=== PATIENT | male | born 1940 | race Caucasian/White ===

== ENCOUNTER 2016-12-24 11:18 | Emergency (ER) | payer MEDICARE, BC ==
--- NOTE | 2016-12-24 11:26 | EDM.PDOC ---
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 Denies LOC or any other injury. Pt states his DPOA drove him to town to go to the civil attorney's office and that's when he bumped his head. Pt's DPOA states pt was drowsy this morning before he hit his head. She wasn't sure if he hadn't slept well, it he was getting sick, or if maybe he had accidentally taken his night medications in the morning rather than at night. Pt is unable to provide any further history. Symptom Onset Date: 12/24/16 Location: Reports: parietal (Rt) Severity: mild Place of Occurrence: other Improves with: none Worsens with: none Context: Reports: fall Associated Symptoms: Reports: no other symptoms - Related Data Allergies/ADRs: Allergies Allergy/AdvReac Type Severity Reaction Status Date / Time No Known Allergies Allergy Verified 07/12/16 17:07 Home Meds: Home Meds Amitriptyline [Elavil] 25 mg PO BEDTIME 12/24/16 [History] Benazepril HCl [Lotensin] 40 mg PO DAILY 12/24/16 [History] Carvedilol [Coreg] 6.25 mg PO DAILY 12/24/16 [History] Citalopram [Celexa] 20 mg PO DAILY 12/24/16 [History] Cyanocobalamin (Vitamin B-12) [Vitamin B-12] 1 tab PO DAILY 12/24/16 [History] LORazepam 1 mg PO BEDTIME 12/24/16 [History] Simvastatin [Zocor] 40 mg PO BEDTIME 12/24/16 [History] amLODIPine [Norvasc] 5 mg PO DAILY 12/24/16 [History] buPROPion [Wellbutrin XL] 150 mg PO DAILY 12/24/16 [History] metFORMIN HCl [Metformin HCl] 500 mg PO BID 12/24/16 [History] Past Medical History - Past Health History Medical/Surgical History: Denies Medical/Surgical History Cardiovascular History: Reports: Hypertension Social & Family History - Family History Family Medical History: Noncontributory - Tobacco Use Smoking Status *Q: Never Smoker - Alcohol Use Days Per Week of Alcohol Use: 7 Number of Drinks Per Day: 3 Total Drinks Per Week: 21 - Recreational Drug Use Recreational Drug Use: No - Living Situation & Occupation Living situation: Reports: alone Occupation: retired ED ROS GENERAL - Review of Systems Review Of Systems: ROS reveals no pertinent complaints other than HPI. ED EXAM, HEAD INJURY - Physical Exam Exam: See Below Exam Limited By: No limitations General Appearance: alert, WD/WN, no apparent distress Head: normocephalic, scalp lacerations (Rt parietal 2cm linear laceration with superficial abrasion, no active bleeding) Nexus Criteria: No: posterior, midline cervical tenderness, evidence of intoxication, altered level of consciousness, focal neurological deficit, painful distracting injuries Eyes: bilateral eye: normal inspection Ears: normal external exam, hearing grossly normal Nose: normal inspection, normal mucousa, no blood Throat/Mouth: Normal voice, No airway compromise Neck: non-tender, full range of motion, normal alignment, normal inspection Respiratory: no respiratory distress, lungs clear, normal breath sounds, no accessory muscle use Cardiovascular: regular rate, rhythm GI/Abdominal Exam (Abbreviated): normal bowel sounds, soft, non tender, no distention Back Exam: normal inspection Extremities: no evidence of injury, normal range of motion, non-tender 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, no motor/sensory deficits, alert, other ( oriented to person, place, and month) - [place] Coma Score Best Eye Response (Diego): (4) open spontaneously Best Verbal Response (Diego): (5) oriented Best Motor Response (Diego): (6) obeys commands Diego Total: 15 ED LACERATION/WOUND & ITALIA PROC - Laceration/Wound Repair Right Head Lac/wound length in cm: 2 (Rt parietal scalp) Appearance: subcutaneous, linear, clean, other (w/peripheral superficial abrasion) Distal NVT: neuro & vascular intact Anesthetic type: local Local anesthesia - Lidocaine (Xylocaine): 1% plain Local anesthetic volume: 5cc Skin prep: chlorhexidine (hibiciens), saline Saline irrigation (cc's): 50 Exploration/Debridement/Repair: wound explored, in a bloodless field, explored to base, minimal debridement, minimally undermined Closed with: brandyn # of sutures: 4 Suture type: interrupted Drain placement: No Sterile dressing applied: none Tetanus status addressed: Yes Complications: No EKG INTERPRETATION EKG Date: 12/24/16 Time: 12:40 Rhythm: other (SR) Rate (beats/min): 64 [place]: LAD-left axis deviation P-wave: present QRS: normal ST-T: normal QT: normal Comparison: NA - no prior EKG Course - Vital Signs Last Recorded V/S: Last Vital Signs Temp 36.7 C 12/24/16 11:28 Pulse 63 12/24/16 11:28 Resp 16 12/24/16 11:28 BP 140/68 12/24/16 11:28 Pulse Ox 97 12/24/16 11:28 - Orders/Labs/Meds Orders: Active Orders 24 hr Category Date Time Status EKG 12 Lead [EKG Documentation Completion] [RC] STAT Care 12/24/16 12:11 Active Labs: Laboratory Tests 12/24/16 12/24/16 12/24/16 Range/Units 12:23 12:23 13:24 WBC 9.4 (5.0-10.0) 10^3/uL RBC 4.74 (4.6-6.2) 10^6/uL Hgb 15.8 (14.0-18.0) g/dL Hct 45.8 (40.0-54.0) % MCV 96.6 (80-100) fL MCH 33.3 (27.0-34.0) pg MCHC 34.5 (33.0-35.0) g/dL Plt Count 204 (150-450) 10^3/uL Neut % (Auto) 59.2 (42.2-75.2) % Lymph % (Auto) 22.7 (20.5-50.1) % [place] % (Auto) 15.4 H (2-8) % Eos % (Auto) 2.3 (1.0-3.0) % Baso % (Auto) 0.4 (0.0-1.0) % Sodium 139 (135-145) mmol/L Potassium 3.9 (3.6-5.0) mmol/L Chloride 103 (101-111) mmol/L Carbon Dioxide 30.0 (21.0-31.0) mmol/L Anion Gap 9.9 BUN 18 (7-18) mg/dL Creatinine 0.9 (0.6-1.3) mg/dL Est Cr Clr Drug Dosing 56.64 mL/min Estimated GFR (MDRD) > 60 BUN/Creatinine Ratio 20.00 Glucose 97 (74-105) mg/dL Calcium 9.0 (8.4-10.2) mg/dl Total Bilirubin 1.0 (0.2-1.0) mg/dL AST 34 (10-42) IU/L ALT 27 (10-60) IU/L Alkaline Phosphatase 69 (42-121) IU/L Total Protein 6.0 L (6.7-8.2) g/dl Albumin 3.4 (3.2-5.5) g/dl Globulin 2.6 Albumin/Globulin Ratio 1.31 Urine Color Dark yellow (YELLOW) Urine Appearance Slightly cloudy (CLEAR) Urine pH 5.0 (5.0-9.0) Ur Specific [place] >= 1.030 (1.005-1.030) Urine Protein 30 H (NEGATIVE) Urine Glucose (UA) Negative (NEGATIVE) Urine Ketones 15 H (NEGATIVE) Urine Occult Blood Negative (NEGATIVE) Urine Nitrite Negative (NEGATIVE) Urine Bilirubin Small H (NEGATIVE) Urine Urobilinogen 1.0 (0.2-1.0) mg/dL Ur Leukocyte Esterase Negative (NEGATIVE) Urine RBC 0-5 /HPF Urine WBC 0-5 (0-5/HPF) /HPF Ur Epithelial Cells Rare /HPF Calcium Oxalate Crystal Few H /HPF Urine Mucus Moderate H /LPF Urine Opiates Screen (NEGATIVE) Ur Oxycodone Screen (NEGATIVE) Urine Methadone Screen (NEGATIVE) Ur Barbiturates Screen (NEGATIVE) U Tricyclic Antidepress (NEGATIVE) Ur Phencyclidine Scrn (NEGATIVE) Ur Amphetamine Screen (NEGATIVE) U Methamphetamines Scrn (NEGATIVE) Urine MDMA Screen (NEGATIVE) U Benzodiazepines Scrn (NEGATIVE) Urine Cocaine Screen (NEGATIVE) U Marijuana (THC) Screen (NEGATIVE) Ethyl Alcohol < 5 mg/dL 12/24/16 Range/Units 13:24 WBC (5.0-10.0) 10^3/uL RBC (4.6-6.2) 10^6/uL Hgb (14.0-18.0) g/dL Hct (40.0-54.0) % MCV (80-100) fL MCH (27.0-34.0) pg MCHC (33.0-35.0) g/dL Plt Count (150-450) 10^3/uL Neut % (Auto) (42.2-75.2) % Lymph % (Auto) (20.5-50.1) % [place] % (Auto) (2-8) % Eos % (Auto) (1.0-3.0) % Baso % (Auto) (0.0-1.0) % Sodium (135-145) mmol/L Potassium (3.6-5.0) mmol/L Chloride (101-111) mmol/L Carbon Dioxide (21.0-31.0) mmol/L Anion Gap BUN (7-18) mg/dL Creatinine (0.6-1.3) mg/dL Est Cr Clr Drug Dosing mL/min Estimated GFR (MDRD) BUN/Creatinine Ratio Glucose (74-105) mg/dL Calcium (8.4-10.2) mg/dl Total Bilirubin (0.2-1.0) mg/dL AST (10-42) IU/L ALT (10-60) IU/L Alkaline Phosphatase (42-121) IU/L Total Protein (6.7-8.2) g/dl Albumin (3.2-5.5) g/dl Globulin Albumin/Globulin Ratio Urine Color (YELLOW) Urine Appearance (CLEAR) Urine pH (5.0-9.0) Ur Specific [place] (1.005-1.030) Urine Protein (NEGATIVE) Urine Glucose (UA) (NEGATIVE) Urine Ketones (NEGATIVE) Urine Occult Blood (NEGATIVE) Urine Nitrite (NEGATIVE) Urine Bilirubin (NEGATIVE) Urine Urobilinogen (0.2-1.0) mg/dL Ur Leukocyte Esterase (NEGATIVE) Urine RBC /HPF Urine WBC (0-5/HPF) /HPF Ur Epithelial Cells /HPF Calcium Oxalate Crystal /HPF Urine Mucus /LPF Urine Opiates Screen Negative (NEGATIVE) Ur Oxycodone Screen Negative (NEGATIVE) Urine Methadone Screen Negative (NEGATIVE) Ur Barbiturates Screen Negative (NEGATIVE) U Tricyclic Antidepress Positive H (NEGATIVE) Ur Phencyclidine Scrn Negative (NEGATIVE) Ur Amphetamine Screen Negative (NEGATIVE) U Methamphetamines Scrn Negative (NEGATIVE) Urine MDMA Screen Negative (NEGATIVE) U Benzodiazepines Scrn Positive H (NEGATIVE) Urine Cocaine Screen Negative (NEGATIVE) U Marijuana (THC) Screen Negative (NEGATIVE) Ethyl Alcohol mg/dL Meds: Medications Discontinued Medications Generic Name Dose Route Start Last Admin Trade Name Scar PRN Reason Stop Dose Admin Bacitracin 1 dose 12/24/16 11:31 12/24/16 11:38 Bacitracin Oint 1 Gm TOP 12/24/16 11:32 1 dose ONETIME ONE Administration Lidocaine HCl 30 ml 12/24/16 11:30 12/24/16 11:38 Xylocaine-Mpf 1% INJECT 12/24/16 11:31 30 ml ONETIME ONE Administration - Radiology Interpretation Free Text/Narrative:: CT Head: multi-infarct disease, 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 CT Results Date: 12/24/16 - Re-Assessments/Exams Free Text/Narrative Re-Assessment/Exam: 12/24/16 I explained the exam findings, results of all diagnostic tests, working diagnosis, and any potential or additionally considered diagnoses, treatment/ disposition plan, self/home care instructions, rational for the diagnosis/ treatment plan/disposition plan, anticipated course of illness, and follow up instructions to the pt and/or pts family or guardian. The pt and/or pts family or guardian acknowledges understanding of the above explanation(s), and of the signs and symptoms which should prompt the return of the pt to the ER should those or any other concerning symptoms develop. Departure - Departure Time of Disposition: 14:09 Disposition: Home, Self-Care 01 Condition: fair Clinical Impression: Drowsiness Scalp laceration Qualifiers: Encounter type: initial encounter Qualified Code(s): S01.01XA - Laceration without foreign body of scalp, initial encounter Instructions: Laceration Care, Adult Referrals: PCP,Unobtain [Primary Care Provider] - Forms: ED Department Discharge Additional Instructions: Follow up in clinic in 7 days for staple removal. Follow up in clinic in 3 days for recheck. Check medications at home to ensure proper timing and dosing. - My Orders Last 24 Hours: My Active Orders 12/24/16 12:11 EKG 12 Lead [EKG Documentation Completion] [RC] STAT - Assessment/Plan Last 24 Hours: My Active Orders 12/24/16 12:11 EKG 12 Lead [EKG Documentation Completion] [RC] STAT
[2016-12-24] MEDS ORDERED: Lidocaine 1% 30 ML SDV INJECT ONE (11:30)
[2016-12-24] MEDS ORDERED: Bacitracin Oint 1 GM U/D Packet TOP ONE (11:31)
[2016-12-24 12:12] VITALS: BP 140/68
[2016-12-24 12:52] LABS: CHLORIDE,CL 103 mmol/L (101-111); SODIUM,NA 139 mmol/L (135-145)
--- NOTE | 2016-12-24 14:54 | CT ---
Clinical history: 68-year-old "drowsy" male (head injury). TECHNIQUE: Volume acquisition of data emergency unenhanced CT scan of the head obtained with patient lying supine on the Siemens multi slice CT scanner [facility]. A ll data archived in the PACS system for storage and study (bone/brain windows). Interpretation: Uniformly thick bony calvarium without sign of skull fracture, underlying brain cont usion or epidural/subdural hematoma. Sutures in the scalp posterior right parietal region. Symmetric clear pneumatization of the mastoid and paranasal sinuses (tiny colon polyps maxillary ant ra bilaterally). Nasal septum is straight in the midline and nonedematous nasal turbinates. Scattered focal areas of decreased attenuation throughout the periventricular white matter of both c erebral hemispheres characteristic of multi-infarct ischemic disease. No previous exams immediately available for comparison. No surrounding edema or mass effect. No supratentorial or posterior fossa mass lesion. No hydrocephalus. No sign of acute intracerebral/intraventricular/subarachnoid bleed. CONCLUSION: No sign of skull fracture or acute closed head injury. Extensive ischemic change. Scalp sutures.
--- NOTE | 2017-01-15 12:57 | EKG ---
12/24/2016- CHAPO URIARTE - EKG done on a 76-year-old male showing sinus rhythm with a heart rate of 64 beats per minute. Normal intervals. No acute ST-T wave changes. [facility] /[id number]
== END 2016-12-24 14:50 | disposition home or self-care (01) ==
LOC: DL.ED 11:18
DX: S01.01XA Laceration without foreign body of scalp, initial encounter (principal); R40.0 Somnolence; I10 Essential (primary) hypertension; Z79.84 Long term (current) use of oral hypoglycemic drugs; Z79.899 Other long term (current) drug therapy; W18.09XA Striking against other object with subsequent fall, initial encounter
CPT/HCPCS: 12001; 36415; 70450; 80053; 80305; 81001; 85025; 93005; 93010; 99283; 99284; G0480

== ENCOUNTER 2017-05-21 11:39 | Emergency (ER) | payer MEDICARE, BC ==
[2017-05-21 11:52] VITALS: BP 133/62
--- NOTE | 2017-05-21 12:33 | EDM.PDOC ---
ED HPI GENERAL MEDICAL PROBLEM - General Chief Complaint: General Stated Complaint: FELL OUTSIDE. [phone] Time Seen by Provider: 05/21/17 11:55 Source of Information: Reports: Patient, RN, RN Notes Reviewed History Limitations: Reports: No Limitations - History of Present Illness INITIAL COMMENTS - FREE TEXT/NARRATIVE: Patient is brought to the ER after being witnessed falling in the parking lot at [facility]. He states he was leaving the hospital after an appointment at the [place] clinic. He states he was digging in his pocket and lost his balance. He denies hitting his head or losing conciousness. He states he feels his left shoulder took the brunt of the fall, but denies any pain. He states his clothing is wet on the left side as he fell in the drain on his way down. He denies chest pain, sob, fever, chills, or significant pain. Onset: Today, Sudden Severity: Mild Improves with: Reports: None Worsens with: Reports: None Associated Symptoms: Reports: No Other Symptoms - Related Data Allergies Allergy/AdvReac Type Severity Reaction Status Date / Time No Known Allergies Allergy Verified 05/21/17 11:49 Home Meds: Home Meds Amitriptyline [Elavil] 50 mg PO BEDTIME 12/24/16 [History] Benazepril HCl [Lotensin] 40 mg PO DAILY 12/24/16 [History] Carvedilol [Coreg] 6.25 mg PO BID 12/24/16 [History] Citalopram [Celexa] 20 mg PO DAILY 12/24/16 [History] Cyanocobalamin (Vitamin B-12) [Vitamin B-12] 1 tab PO DAILY 12/24/16 [History] LORazepam 1 mg PO BEDTIME PRN 12/24/16 [History] amLODIPine [Norvasc] 5 mg PO DAILY 12/24/16 [History] buPROPion [Wellbutrin XL] 150 mg PO DAILY 12/24/16 [History] metFORMIN HCl [Metformin HCl] 500 mg PO BID 12/24/16 [History] Folic Acid 1 mg PO DAILY 05/21/17 [History] Past Medical History - Past Health History Medical/Surgical History: Denies Medical/Surgical History Cardiovascular History: Reports: Hypertension Psychiatric History: Reports: Depression Endocrine/Metabolic History: Reports: Diabetes, Type II Hematologic History: Reports: B12 Deficiency Social & Family History - Family History Family Medical History: Noncontributory - Tobacco Use Smoking Status *Q: Former Smoker Used Tobacco, but Quit: Yes Month Tobacco Last Used: unknown - Caffeine Use Caffeine Use: Reports: Coffee - Alcohol Use Days Per Week of Alcohol Use: 7 Number of Drinks Per Day: 3 Total Drinks Per Week: 21 - Recreational Drug Use Recreational Drug Use: No - Living Situation & Occupation Living situation: Reports: Alone Occupation: Retired ED ROS GENERAL - Review of Systems Review Of Systems: ROS reveals no pertinent complaints other than HPI. ED EXAM, GENERAL - Physical Exam Exam: See Below Exam Limited By: No Limitations General Appearance: Alert, WD/WN, No Apparent Distress Eye Exam: Bilateral Eye: Normal Inspection Ears: Normal External Exam, Hearing Grossly Normal Ear Exam: Bilateral Ear: Auricle Normal, Canal Normal, TM normal Nose: Normal Inspection, Normal Mucosa, No Blood Throat/Mouth: Normal Inspection, Normal Lips, Normal Teeth, Normal Gums, Normal Oropharynx, Normal Voice, No Airway Compromise Head: Atraumatic, Normocephalic Neck: Normal Inspection, Supple, Non-Tender, Full Range of Motion Respiratory/Chest: No Respiratory Distress, Lungs Clear, Normal Breath Sounds, No Accessory Muscle Use, Chest Non-Tender Cardiovascular: Normal Peripheral Pulses, Regular Rate, Rhythm, No Edema, No Gallop, No JVD, No Murmur, No Rub Peripheral Pulses: 2+: Radial (L), Radial (R) GI/Abdominal: Normal Bowel Sounds, Soft, Non-Tender, No Organomegaly, No Distention, No Abnormal Bruit, No Mass, Pelvis Stable (Male) Exam: Deferred Rectal (Males) Exam: Deferred Back Exam: Normal Inspection, Full Range of Motion Extremities: Normal Inspection, Normal Range of Motion, Non-Tender, No Pedal Edema, Normal Capillary Refill Neurological: Alert, Oriented, Normal Cognition, Normal Gait, No Motor/Sensory Deficits Psychiatric: Normal Affect, Normal Mood Skin Exam: Warm, Dry, Intact, Normal Color, No Rash Lymphatic: No Adenopathy Course - Vital Signs Last Recorded V/S: Last Vital Signs Temp 97.8 F 05/21/17 11:49 Pulse 54 L 05/21/17 11:49 Resp 18 05/21/17 11:49 BP 133/62 05/21/17 11:49 Pulse Ox 100 05/21/17 11:49 Departure - Departure Time of Disposition: 12:44 Disposition: Home, Self-Care 01 Condition: Good Clinical Impression: Abrasion of left wrist, initial encounter Fall (on)(from) sidewalk curb, initial encounter Qualifiers: Encounter type: initial encounter Qualified Code(s): W10.1XXA - Fall (on)(from ) sidewalk curb, initial encounter - Discharge Information Instructions: Fall Prevention in the Home, [id number] Forms: ED Department Discharge Additional Instructions: Follow up with your primary care provider in 3-4 days. Tylenol every 4 hours as needed for pain. Ibuprofen every 6-8 hours as needed for pain.
== END 2017-05-21 13:03 | disposition home or self-care (01) ==
LOC: DL.ED 11:39
DX: S60.812A Abrasion of left wrist, initial encounter (principal); I10 Essential (primary) hypertension; E11.9 Type 2 diabetes mellitus without complications; F32.9 Major depressive disorder, single episode, unspecified; Z87.891 Personal history of nicotine dependence; Z79.899 Other long term (current) drug therapy; W10.1XXA Fall (on)(from) sidewalk curb, initial encounter
CPT/HCPCS: 99283

== ENCOUNTER 2018-03-19 10:41 | Day surgery (SDC) | payer MEDICARE, BC ==
[2018-03-19] MEDS ORDERED: Dexamethasone 4 MG/ML SDV IV ONE (10:42)
[2018-03-19] MEDS ORDERED: Midazolam 1 MG/ML 2 ML SDV IV ONE (10:42)
[2018-03-19] MEDS ORDERED: Sodium Chloride 0.9% 10 ML Syringe IV ONE (10:42)
[2018-03-19] MEDS ORDERED: Proparacaine 0.5% Ophth Soln 15 ML Bottle EYELF ONE (11:00)
[2018-03-19] MEDS ORDERED: Phenylephrine 10% Ophth Soln 5 ML Bot EYELF ONE (11:00)
[2018-03-19] MEDS ORDERED: Acetaminophen 325 MG Tab PO PRN (11:00)
[2018-03-19] MEDS ORDERED: Sodium Chloride 0.9% 10 ML Syringe FLUSH PRN (11:00)
[2018-03-19] MEDS ORDERED: Moxifloxacin 0.5% Ophth Soln 3 ML Bottle EYELF ONE (11:00)
[2018-03-19] MEDS ORDERED: Phenylephrine 10% Ophth Soln 5 ML Bot EYELF PRN (11:00)
[2018-03-19] MEDS ORDERED: Povidone-Iodine 5% Sterile Ophth Soln 30 ML Bottle EYELF ONE ×2 (11:00→11:58)
[2018-03-19] MEDS ORDERED: Cataract Ophth Solution EYELF ONE (11:00)
[2018-03-19] MEDS ORDERED: Ondansetron 4 MG/2 ML SDV IVPUSH PRN (11:00)
[2018-03-19] MEDS ORDERED: Timolol Maleate 0.5% Ophth Soln 5 ML Bottle EYELF ONE (11:00)
[2018-03-19] MEDS ORDERED: Tetracaine HCl/PF 0.5% 4 ML Bottle EYELF ONE (11:58)
[2018-03-19] MEDS ORDERED: Lidocaine 1% 30 ML SDV INJECT ONE (12:04)
[2018-03-19] MEDS ORDERED: Balanced Salt Solution Ophth Irrig 500 ML Bottle IOCULAR ONE (12:05)
[2018-03-19] MEDS ORDERED: Vancomycin 500 MG SDV EYELF ONE (12:05)
[2018-03-19] MEDS ORDERED: Chondroitin Sulfate/Hyaluronate Sodium Ophth Inj 0.75 ML Syringe EYELF ONE (12:06)
[2018-03-19] MEDS ORDERED: Dexamethasone/Neomycin/Polymyxin B Ophth Oint 3.5 GM Tube EYELF ONE (12:19)
[2018-03-19] MEDS ORDERED: Apraclonidine 0.5% Ophth Soln 5 ML Bot EYELF ONE (12:19)
--- NOTE | 2018-03-19 12:43 | OR ---
DATE: 03/19/2018 PREOPERATIVE DIAGNOSIS: Visually significant mixed cataract, left eye. POSTOPERATIVE DIAGNOSIS: Visually significant mixed cataract, left eye. PROCEDURE: Extracapsular cataract extraction with intraocular lens implant, left eye. ANESTHESIA: Topical/local MAC. COMPLICATIONS: None. INDICATION: Mr. Cedeño was seen in the clinic. He is unhappy with his vision and complains of difficulty with small print, difficulty reading, and difficulty with glare. Examination reveals visually significant mixed cataract. I explained options, offered cataract surgery, and explained risks. He is symptomatic and requested surgery to improve vision and function. He requested a monofocal implant. I explained the potential for infection, retinal detachment, loss of vision, and need for additional surgery amongst others. OPERATIVE DESCRIPTION: After informed consent was obtained and the risks, benefits, and alternatives were explained, the patient was brought to the operative suite and topical anesthesia was administered. The patient was then prepped and draped in the sterile fashion, and attention was placed on the left eye. A sterile lid speculum was placed into the left eye to allow operative exposure. A full-thickness paracentesis was made in the temporal portion of the operative eye. Preservative-free lidocaine 0.1 mL was injected into the anterior chamber followed by viscoelastic. A full-thickness corneal incision was then made into the anterior chamber. A bent needle cystotome was used to create a small raffaele in the anterior capsule. The capsulorrhexis forceps was then used to create a 360-degree curvilinear capsulorrhexis. The nucleus was then removed using a phacoemulsification handpiece, and the remaining cortical material was then removed with irrigation and aspiration handpiece. Following removal of the cortical material, the capsular bag was then inspected and noted to be free of any holes or tears. Viscoelastic was then injected into the capsular bag, and the intraocular lens was inserted into the capsular bag. The viscoelastic material was then removed from both the anterior and posterior chambers and from behind the IOL. The lens and capsular bag were then reinspected. The IOL was well centered and the capsular bag intact. The wound and paracentesis sites were inspected and hydrated with balanced saline solution. Both were found to be self-sealing. The intraocular pressure was assessed digitally and found to be within normal range. A good red reflex was noted at the completion of the procedure. No complications occurred during the operation. At the completion of the procedure, Francisco Highn, and Iopidine drops were placed into the operative eye. A sterile eye shield was placed over the operative eye, and the patient was transported to the postoperative recovery area having tolerated the procedure well. Postoperative instructions were given along with a postoperative appointment. The patient was advised to call with any questions or concerns. [facility] /[id number]
[2018-03-19 13:18] VITALS: BP 135/75
== END 2018-03-19 13:15 | disposition home or self-care (01) ==
LOC: DL.SDS 10:41
PROVIDERS: ATTEND Ophthalmology
DX: E11.36 Type 2 diabetes mellitus with diabetic cataract (principal); H25.812 Combined forms of age-related cataract, left eye; I10 Essential (primary) hypertension; E11.65 Type 2 diabetes mellitus with hyperglycemia; H26.9 Unspecified cataract; E66.9 Obesity, unspecified; Z68.35 Body mass index [BMI] 35.0-35.9, adult; E78.5 Hyperlipidemia, unspecified; Z87.891 Personal history of nicotine dependence; Z79.84 Long term (current) use of oral hypoglycemic drugs; Z79.899 Other long term (current) drug therapy
CPT/HCPCS: 00142; 66984; A9270; J3370; C1780; J1100; J2250; J7050